=== PATIENT | female | born 1985 | race Caucasian/White ===

== ENCOUNTER 2019-12-14 08:23 | Emergency (ER) | payer OTHER ==
[~2019-12-14] VITALS: Ht 165.1 cm; Wt 75.0 kg
[2019-12-14 09:24] LABS: HEMOGLOBIN 11.6 g/dl (12.0-16.0); IMMATURE GRANULOCYTES 0.3 % (0.0-5.0); MEAN CELL VOLUME 72.4 fL CALC (80.0-100.0); MEAN CORPUSCULAR HGB 21.5 pG CALC (26.0-32.0); MEAN CORPUSCULAR HGB CONC 29.7 g/dL CAL (32.0-36.0); NEUT# 9.9 thou/uL (2.00-7.15); RED BLOOD COUNT 5.39 mill/uL (4.20-5.60); RED CELL DISTRI WIDTH 18.5 % (11.5-15.5)
[2019-12-14 09:37] LABS: ALBUMIN 5.1 g/dL (3.2-5.0); ALKALINE PHOSPHATASE 113 u/l (38-126); BILIRUBIN, TOTAL 0.5 mg/dL (0.0-1.4); BUN 16 mg/dL (7-17); BUN/CREATININE RATIO 19 (12-20 (CALC)); CHLORIDE 104 mmol/l (95-108); CREATININE 0.8 mg/dL (0.5-1.0); GFR > 60 ML/MIN (>=60 (CALC)); GFR FOR AFR.AMER. > 60 ML/MIN (>=60 (CALC)); LIPASE 144 u/l (23-300); POTASSIUM 4.5 mmol/l (3.5-5.1); SGOT/AST 37 u/l (14-36); SODIUM 136 mmol/l (137-146); TOTAL PROTEIN 9.5 g/dL (6.3-8.2)
[2019-12-14 09:50] VITALS: BP 136/97
[2019-12-14 10:05] LABS: ANION GAP 16 (6-22 (CALC)); CARBON DIOXIDE 21 mmol/l (22-30)
== END 2019-12-14 09:50 | disposition left against medical advice (07) | DRG 84 ==
LOC: ED 08:23
PROVIDERS: Family Medicine
DX: S06.9X9A Unspecified intracranial injury with loss of consciousness of unspecified duration, initial encounter (principal); M54.2 Cervicalgia; M25.551 Pain in right hip; F17.210 Nicotine dependence, cigarettes, uncomplicated; V58.6XXA Passenger in pick-up truck or van injured in noncollision transport accident in traffic accident, initial encounter; Z91.19 Patient's noncompliance with other medical treatment and regimen